=== PATIENT | female | born 1990 | race American Indian/Alaskan Native ===

== ENCOUNTER 2017-07-25 14:37 | Emergency (ER) | payer MEDICAID, SELFPAY ==
[2017-07-25 14:51] VITALS: BP 109/69; PULSE 104; RESP 18; TEMP 36.7; O2SAT 98; BMI 34.7
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
[2017-07-25] MEDS: KETOROLAC 60 MG/2 ML VIAL 30 MG IM (16:29)
[2017-07-25 18:10] VITALS: BP 99/65
== END 2017-07-25 18:27 | disposition left against medical advice (07) ==
PROVIDERS: Emergency Provider Nurse Practitioner Family; PCP Family Medicine
DX: R68.84 Jaw pain (principal)
CPT/HCPCS: 96360; 70486; 96361; 96372; 99282; 99284; J1885

== ENCOUNTER 2024-07-29 03:54 | Emergency (ER) | payer MEDICAID, SELFPAY ==
[2024-07-29] VITALS (11 sets, daily range): BP systolic 133–142; BP diastolic 73–89; PULSE 56–82; RESP 20–34; TEMP 36.1–37.6; O2SAT 90–98
[2024-07-29] MEDS: ONDANSETRON 4 MG/2 ML INJ IV ×2 (04:00→05:13)
[2024-07-29 04:07] LABS: Add Manual Diff / Slide Review NO; Basophils Absolute Auto 100 /uL (0-100); Basophils Percent Auto 0.6 % (0-2); Eosinophils Absolute Auto 0 /uL (0-450); Eosinophils Percent Auto 0.1 % (2-4); Hematocrit 46.4 % (36-46); Lymphocytes Absolute Auto 1500 /uL (1100-4500); Lymphocytes Percent Auto 10.4 % (25-40); Mean Corpuscular HGB Conc 34.4 % (30-36); Mean Corpuscular Hemoglobin 29.3 PG (26-34); Mean Corpuscular Volume 84.9 fL (80-100); Monocytes Absolute Auto 500 /uL (0-900); Monocytes Percent Auto 3.8 % (3-14); Neutrophils Absolute Auto 12200 /uL (1500-7000); Neutrophils Percent Auto 85.1 % (50-75); Platelet Count 488 X10^3/uL (150-400); Red Blood Cell Count 5.47 X10^6/uL (4.0-5.2); Red Cell Distribution Width 15.1 % (11.6-14.8); White Blood Cell Count 14.3 X10^3/uL (4.5-11.0)
[2024-07-29 04:17] LABS: Alanine Aminotransferase 17 IU/L (<35); Albumin 4.7 g/dL (3.5-5.0); Albumin Globulin Ratio 1.2 (1.0-2.8); Alkaline Phosphatase 91 U/L (38-126); Aspartate Aminotransferase 25 IU/L (14-36); BUN Creatinine Ratio 13.9 (6-22); Bilirubin Total 1.4 mg/dL (0.2-1.3); Blood Urea Nitrogen 10 mg/dL (7-17); Calcium 9.3 mg/dL (8.4-10.2); Carbon Dioxide 17 mmol/L (22-32); Chloride 108 mmol/L (98-107); Estimated Glomerular Filt Rate > 60 mL/min (>60); Globulin 3.9 g/dL (1.7-4.1); Glucose 155 mg/dL (70-99); HEMOLYSIS < 15 (0-50); Lipase 186 U/L (23-300); Potassium 3.7 mmol/L (3.4-5.1); Sodium 140 mmol/L (137-145); Total Protein 8.6 g/dL (6.3-8.2)
--- NOTE | 2024-07-29 04:40 | ED_ITS ---
HPI - Nausea/Vomiting/Diarrhea General Chief complaint: Nausea/Vomiting/Diarrhea Stated complaint: n/v Time Seen by Provider: 07/29/24 04:01 Source: EMS Mode of arrival: EMS History of Present Illness HPI Narrative: 33-year-old female complains of nausea and vomiting nonbloody, recent diagnosis of urinary tract infection, taking twice daily antibiotic that she can not name, prescribed from [facility]. Denies diarrhea. No black or red stools. No fevers or chills. No flank or back pain. No chest pain, shortness of breath. Related Data Home Medications ?Medication ?Instructions ?Recorded ?Confirmed No Known Home Medications 07/25/1702/05 Allergies Allergy/AdvReac Type Severity Reaction Status Date / Time amoxicillin Allergy Unknown Verified 02/14/19 10:39 erythromycin base Allergy Unknown Verified 02/14/19 10:39 Patient History Medical History (Updated 07/29/24 @ 07:17 by Stephen Mcbride MD) Scoliosis Surgical History (Updated 02/22/19 @ 17:41 by Ximena Miller) Anesthesia History of cholecystectomy (~03/2018) Family History (Updated 02/22/19 @ 17:41 by Ximena Miller) Mother Stroke alcohol intake frequency: 0-2 drinks per day Exam Narrative Exam Narrative: GENERAL: Well-developed patient, in mild distress. HEAD: Atraumatic. Normocephalic. EYES: Pupils equal round and reactive. Extraocular motions intact. No scleral icterus. No injection or drainage. ENT: Nose without bleeding, purulent drainage. Throat without erythema, tonsillar hypertrophy or exudate. Airway patent. NECK: Trachea midline. Non tender CARDIOVASCULAR: Regular rate and rhythm without murmurs, gallops, or rubs. RESPIRATORY: Clear to auscultation. Breath sounds equal bilaterally. No wheezes, rales, or rhonchi. GASTROINTESTINAL: Abdomen soft, non-tender, nondistended. EXTREMITIES: No edema or joint tenderness. BACK: Nontender without deformity or crepitance. No flank tenderness. NEURO: AOx3. Motor functions grossly nonfocal. SKIN: No rash or erythema of visible areas Initial Vital Signs Initial Vital Signs: Vital Signs Pulse Rate 59 L 07/29/24 03:57 Respiratory Rate 25 H 07/29/24 03:57 Course Orders Ordered: Discontinued Medications Ondansetron HCl (Ondansetron 4 Mg/2 Ml Inj) 4 mg IV NOW ONE Stop: 07/29/24 03:58 Last Admin: 07/29/24 04:00 Dose: 4 mg Documented By: CHERELLE Ondansetron HCl (Ondansetron 4 Mg/2 Ml Inj) 4 mg IV NOW ONE Stop: 07/29/24 05:04 Last Admin: 07/29/24 05:13 Dose: 4 mg Documented By: YVAN Vital Signs Vital signs: Vital Signs - 8 hr 07/29/24 07:00 07/29/24 07:37 Temperature 99.7 F H Pulse Rate 61 59 L Respiratory Rate 22 20 Blood Pressure 139/80 Pulse Oximetry 95 98 Oxygen Delivery Method Room Air MDM - Nausea/Vomiting/Diarrhea Lab Data Lab results narrative: White blood cell count 97682, hemoglobin 16.0, platelets adequate. Glucose 155. Normal renal function. Serum CO2 17 diminished, normal sodium and potassium levels. T bili 1.4 slight elevation, other liver functions unremarkable. Lipase normal. 07/29/24 03:59 07/29/24 03:59 Labs: Lab Results 07/29/24 Range/Units 03:59 WBC 14.3 H (4.5-11.0) X10^3/uL RBC 5.47 H (4.0-5.2) X10^6/uL Hgb 16.0 (12.0-16.0) g/dL Hct 46.4 H (36-46) % MCV 84.9 (80-100) fL MCH 29.3 (26-34) PG MCHC 34.4 (30-36) % RDW 15.1 H (11.6-14.8) % Plt Count 488 H (150-400) X10^3/uL Neut % (Auto) 85.1 H (50-75) % Lymph % (Auto) 10.4 L (25-40) % Trinity % (Auto) 3.8 (3-14) % Eos % (Auto) 0.1 L (2-4) % Baso % (Auto) 0.6 (0-2) % Neut # (Auto) 04205 H (9672-7269) /uL Lymph # (Auto) 1500 (6829-2409) /uL Trinity # (Auto) 500 (0-900) /uL Eos # (Auto) 0 (0-450) /uL Baso # (Auto) 100 (0-100) /uL Sodium 140 (137-145) mmol/L Potassium 3.7 (3.4-5.1) mmol/L Chloride 108 H (98-107) mmol/L Carbon Dioxide 17 L (22-32) mmol/L BUN 10 (7-17) mg/dL Creatinine 0.72 (0.52-1.04) mg/dL Estimated GFR > 60 (>60) mL/min BUN/Creatinine Ratio 13.9 (6-22) Glucose 155 H (70-99) mg/dL Calcium 9.3 (8.4-10.2) mg/dL Total Bilirubin 1.4 H (0.2-1.3) mg/dL AST 25 (14-36) IU/L ALT 17 (<35) IU/L Alkaline Phosphatase 91 (38-126) U/L Total Protein 8.6 H (6.3-8.2) g/dL Albumin 4.7 (3.5-5.0) g/dL Globulin 3.9 (1.7-4.1) g/dL Albumin/Globulin Ratio 1.2 (1.0-2.8) Lipase 186 (23-300) U/L HCG, Quant < 2.39 mIU/mL MDM Narrative Medical decision making narrative: 33-year-old female on oral antibiotics for urine infection from outside facility, has nausea or vomiting. Afebrile on triage, normotensive. No tenderness on abdomen. Labs pending. White blood cell count 24257 elevated. Renal function normal. CT abdomen and pelvis ordered. CT abdomen and pelvis. Impressions: ?No evidence of colitis diverticulitis bowel obstruction or obstructive uropathy. Appendix is not visualized. See tele radiology report. Patient advised to continue antibiotics for urine infection that she is prescribed from outside facility. She can not remember the name of the antibiotic. DC home. Return precautions discussed. Discharge Plan Departure Patient Disposition: Home Clinical Impression: Nausea and vomiting, Urinary tract infection Instructions: Nausea and Vomiting-Adult Activity Restrictions/Additional Instructions: Nausea and vomiting context of current antibiotics for urine infection. No fever on triage. IV medicines to control vomiting were given. CT abdomen and pelvis was performed, no acute changes noted. Continue taking your antibiotic as prescribed. You seemed to be concerned that your antibiotic itself might be cause your nausea and vomiting with seems less likely. You did not know the name of the antibiotic they were given. It is difficult to try to gas which antibiotic you were be taking. Advised to contact your regular provider today to discuss changing antibiotics if that is a concern. Otherwise advised to continue your course of antibiotics for further treatment of urinary tract infection. Return to this/nearest emergency department for any change worsening symptoms or any concerns prior. Prescriptions: No Action No Known Home Medications Referrals: Faye Mora PA-C [Primary Care Provider, Medical] Stand Alone Forms: Patient Portal/API
[2024-07-29 05:09] LABS: HCG Quantitative /Beta subunit < 2.39 mIU/mL
--- NOTE | 2024-07-29 05:38 | DI.CT.S_ITS ---
PROCEDURE: CT ABDOMEN PELVIS W CON INDICATIONS: abd pain, HCG neg TECHNIQUE: After the administration of intravenous contrast, axial sections acquired from the lung bases to the pubic symphysis. Coronal and sagittal reformats were performed. For radiation dose reduction, the following was used: automated exposure control, adjustment of mA and/or kV according to patient size. COMPARISON: [facility], CT, CT ABDOMEN PELVIS WITH CONTRAST, 09/03/2023, 0:04. FINDINGS: Image quality: Diagnostic. Lower Chest: No significant findings. ABDOMEN: Liver: No solid mass. Gallbladder: Status post cholecystectomy. Biliary ducts: No biliary dilation. Pancreas: No ductal dilation. Spleen: Size is within normal limits. Adrenal Glands: No adrenal nodules. Kidneys and Ureters: Small bilateral nonobstructing renal calculi versus medullary nephrocalcinosis. Largest calcification is on the left and measures up to 5 mm. No hydronephrosis. No solid mass. No complex renal cystic lesion which requires follow up. Stomach and Bowel: Moderate hiatal hernia. Mild bowel wall thickening in the rectum and throughout the majority of the colon. Normal appendix. Small bowel loops are nondilated. Peritoneum: No abnormal intraperitoneal fluid. No free air. Ventral Wall: Tiny fat containing periumbilical hernia. Abdominal Nodes: No retroperitoneal or mesenteric adenopathy by size criteria. Vessels: Aorta and inferior vena cava are normal in size. PELVIS: Pelvic Organs: Unremarkable. Bladder: Circumferential bladder wall thickening may be related to underdistention.. Pelvic Nodes: No enlarged lymph nodes. Miscellaneous: No inguinal hernias are seen. Bones: No aggressive osseous abnormality. IMPRESSION: 1. Bowel wall thickening throughout the colon and rectum may be related to underdistention but is suspicious for a mild nonspecific proctocolitis. Normal appendix. 2. Multiple bilateral non-obstructing renal calculi versus medullary nephrocalcinosis. 3. Moderate hiatal hernia. Minor discrepancy noted when compared to the overnight preliminary report. Approved by: Isiah Vaughn M.D. on 07/29/2024 at 8:20
--- NOTE | 2024-07-29 05:52 | PC.NURSE ---
Pt to imaging via ED stretcher with glass technician
--- NOTE | 2024-07-29 06:28 | PC.NURSE ---
Pt detatched self from all monitors and ambulated to restroom without difficulty or assistance
== END 2024-07-29 07:43 | disposition home or self-care (01) ==
PROVIDERS: Emergency Provider Emergency Medicine; PCP Physician Assistant
DX: R11.2 Nausea with vomiting, unspecified (principal); N39.0 Urinary tract infection, site not specified
CPT/HCPCS: 36415; 74177; 80053; 83690; 84702; 85025; 96374; 96375; 99284; J2405; Q9967